=== PATIENT | female | born 1970 | race Two or more races ===

== ENCOUNTER → 2017-11-02 | Outpatient (CLI) | payer BC | LOC: M LRY 14:23 | DX: Z13.9 Encounter for screening, unspecified (principal) ==

== ENCOUNTER → 2017-11-16 | Outpatient (REF) | payer BC, MEDICAID ==
[2017-11-16 14:21] LABS: ERYTHROCYTE SEDIMENTATION RATE 16 mm/hr (0-20)
== END ==
LOC: M LABDRAW1 13:20
DX: M51.34 Other intervertebral disc degeneration, thoracic region (principal)
CPT/HCPCS: 36415

== ENCOUNTER → 2017-12-01 | Outpatient (CLI) | payer BC, MEDICAID | LOC: M RAD 09:32 | DX: K82.4 Cholesterolosis of gallbladder (principal) | CPT/HCPCS: 76705 ==

== ENCOUNTER → 2017-12-06 | Outpatient (REF) | payer BC, MEDICAID ==
[2017-12-06 20:43] LABS: ALBUMIN/GLOBULIN RATIO 1.25 (1.00-1.93); ALKALINE PHOSPHATASE 75 U/L (45-117); ALT/SGPT 28 U/L (12-78); AST/SGOT 20 U/L (7-37); BILIRUBIN,DIRECT < 0.1 MG/DL (0.0-0.2); BILIRUBIN,TOTAL 0.4 MG/DL (0.2-1.0); TOTAL PROTEIN 7.2 GM/DL (6.4-8.2)
== END ==
LOC: M LAB REF 20:12
DX: R93.2 Abnormal findings on diagnostic imaging of liver and biliary tract (principal); K58.9 Irritable bowel syndrome, unspecified

== ENCOUNTER → 2017-12-07 | Outpatient (REF) | payer BC, MEDICAID ==
[2017-12-09 00:06] LABS: H PYLORI STOOL ANTIGEN Positive (Negative)
== END ==
LOC: M SFHCLERA 11:50
DX: K58.9 Irritable bowel syndrome, unspecified (principal)

== ENCOUNTER → 2018-08-02 | Outpatient (REF) | payer BC ==
[2018-08-02 19:26] LABS: CHLAMYDIA DNA AMPLIFICATION NEGATIVE (NEGATIVE); GC DNA AMPLIFICATION NEGATIVE (NEGATIVE)
== END ==
LOC: M SFHCLERA 09:34
DX: Z11.3 Encounter for screening for infections with a predominantly sexual mode of transmission (principal)
CPT/HCPCS: 87591

== ENCOUNTER → 2018-09-03 | Outpatient (CLI) | payer OTHER, BC | LOC: M RAD 15:37 | DX: Z12.31 Encounter for screening mammogram for malignant neoplasm of breast (principal); N60.31 Fibrosclerosis of right breast; N60.32 Fibrosclerosis of left breast | CPT/HCPCS: 77067 ==

== ENCOUNTER → 2018-09-10 | Outpatient (REF) | payer OTHER | LOC: M SFHCLERA 11:11 | DX: R10.9 Unspecified abdominal pain (principal) ==

== ENCOUNTER → 2018-09-13 | Outpatient (REF) | payer OTHER ==
[2018-09-15 00:29] LABS: H PYLORI STOOL ANTIGEN Negative (Negative)
== END ==
LOC: M SFHCLERA 10:06
DX: R10.9 Unspecified abdominal pain (principal)
CPT/HCPCS: 87338

== ENCOUNTER → 2018-09-13 | Outpatient (CLI) | payer OTHER ==
[2018-09-15 00:29] LABS: H. PYLORI BREATH TEST Negative (Negative)
== END ==
LOC: M LAB 11:00
DX: R10.9 Unspecified abdominal pain (principal)
CPT/HCPCS: 36415

== ENCOUNTER → 2018-10-01 | Outpatient (CLI) | payer OTHER | LOC: M RAD 08:39 | DX: R10.9 Unspecified abdominal pain (principal); R10.13 Epigastric pain; Z53.9 Procedure and treatment not carried out, unspecified reason ==

== ENCOUNTER → 2019-03-15 | Outpatient (REF) | payer OTHER ==
[~2019-03-15] MED LIST: CHOL400T PO; HYDR-3363 PO; KETO10TAB PO; MULTCAP PO; NAPR-837 PO; NAPR-885 PO; OMEP40CA2 PO; PROBCAP14 PO; REME15TA PO; ROBA500T PO; ZOFR4TAB14 PO; no home medications
== END ==
LOC: M SFHCLERA 16:04
PROVIDERS: ATTEND Nurse Practitioner Family
DX: R53.81 Other malaise (principal)

== ENCOUNTER → 2019-07-16 | Outpatient (CLI) | payer OTHER ==
[~2019-07-16] MED LIST changes: -OMEP40CA2 PO; +OMEP40CA97 PO
--- NOTE | 2019-07-16 12:58 | REP ---
HIDA SCAN WITH GALLBLADDER EJECTION FRACTION: Following the intravenous administration of 6.6 mCi of technetium-99m mebrofenin, multiple images of the right upper quadrant are performed every 5 minutes for a period of 1 hour. Gallbladder is visualized at 15 minutes post injection. There is biliary to bowel transit at 20 minutes post injection. There is no scintigraphic evidence of cholecystitis. At the 1 hour akiko 8 ounces of Ensure Enlive is ingested and further imaging performed for 1 hour. Gallbladder activity is measured. Gallbladder ejection fraction is calculated to be 40%. IMPRESSION: Gallbladder ejection fraction 40% within normal range. Electronically Signed by Pk Herrera MD 07/17/2019 10:13 A
== END ==
LOC: M RAD 07:43
PROVIDERS: ATTEND Internal Medicine
DX: R10.13 Epigastric pain (principal)
CPT/HCPCS: 78227; A9537; J2805

== ENCOUNTER → 2019-10-29 | Outpatient (CLI) | payer OTHER | LOC: M LAB 08:38 | PROVIDERS: ATTEND Internal Medicine | DX: R73.9 Hyperglycemia, unspecified (principal) ==

== ENCOUNTER → 2020-01-24 | Outpatient (CLI) | payer OTHER ==
--- NOTE | 2020-01-24 09:22 | REP ---
RIGHT QUADRANT SONOGRAPHY: HISTORY: History of gallbladder polyp. Comparison sonography June 29, 2018. SONOGRAPHIC FINDINGS: Scanning through the right upper quadrant of the abdomen demonstrates a normal sized thin-walled gallbladder. In the lumen of the gallbladder, there is a non-shadowing polypoid mass lesion measuring 1.1 x 1.1 x 0.7 cm. Previously, this measured 0.7 cm. In 2017, it was measured sonographically as 0.8 cm. No pericholecystic fluid is seen. No stone is appreciated. No focal liver lesion is seen. Common bile duct is normal measuring 0.3 cm in greatest diameter. Pancreatic tail is obscured by abdominal gas. No pancreatic abnormality is seen. There is a 1.1 cm cyst in the lower pole of the right kidney. The right kidney measures 9.1 x 5.3 x 3.8 cm. No hydronephrosis is seen. There is no evidence of ascites. IMPRESSION: 1.1 cm polypoid lesion on the dependent wall of the gallbladder without shadowing. This appears a little larger than it did on the 2018 and 2016 prior sonograms. Otherwise negative right upper quadrant sonography. Electronically Signed by Suman Dennis MD 01/24/2020 09:23 A
== END ==
LOC: M RAD 07:59
PROVIDERS: ATTEND Internal Medicine
DX: D37.6 Neoplasm of uncertain behavior of liver, gallbladder and bile ducts (principal)

== ENCOUNTER → 2020-06-29 | Outpatient (RCR) | payer OTHER | LOC: M PT 10:05 | PROVIDERS: ATTEND Internal Medicine | DX: M54.5 Low back pain (principal) ==

== ENCOUNTER 2020-07-27 10:15 | Outpatient (RCR) | payer OTHER | END 2020-07-29 | LOC: M PT 10:15 | PROVIDERS: ATTEND Internal Medicine | DX: M54.5 Low back pain (principal) ==

== ENCOUNTER → 2020-08-20 | Outpatient (CLI) | payer OTHER | LOC: M LAB 08:51 | PROVIDERS: ATTEND Physical Medicine & Rehabilitation | DX: M50.221 Other cervical disc displacement at C4-C5 level (principal) ==

== ENCOUNTER → 2020-08-20 | Outpatient (CLI) | payer OTHER ==
--- NOTE | 2020-08-20 08:34 | REP ---
INDICATION: ABD PAIN COMPARISON: 01/24/2020, 12/01/2017 TECHNIQUE: Real time osman scale ultrasound examination using curved array transducer. FINDINGS: Liver is normal in contour, size, and echogenicity without focal hepatic lesions identified. Pancreas is incompletely evaluated due to interposed bowel gas. The gallbladder demonstrates 9 mm and 3 mm echogenic nonshadowing polypoid lesions likely representing gallbladder polyps as previously noted. No gallstones, wall thickening, or pericholecystic fluid. No biliary ductal dilatation is appreciated and the common bile duct measures 5.1 mm diameter. Right kidney is normal in reniform shape without hydronephrosis and measures 9.5 x 4.7 x 3.7 cm. No ascites in the visualized right upper quadrant. IMPRESSION: 1. 1. Relatively stable benign-appearing 9 mm and possibly new 3 mm benign polyps in the gallbladder. 2. Otherwise normal examination. <Electronically signed by Rashawn Hawley > 08/20/20 [id number]
== END ==
LOC: M RAD 07:38
PROVIDERS: ATTEND Internal Medicine Gastroenterology
DX: R10.13 Epigastric pain (principal); K21.9 Gastro-esophageal reflux disease without esophagitis; K29.01 Acute gastritis with bleeding; E53.8 Deficiency of other specified B group vitamins; K82.4 Cholesterolosis of gallbladder

== ENCOUNTER 2020-10-22 08:45 | Outpatient (RCR) | payer OTHER | END 2020-10-29 | LOC: M PT 08:45 | PROVIDERS: ATTEND Internal Medicine | DX: M54.2 Cervicalgia (principal); R20.2 Paresthesia of skin ==

== ENCOUNTER → 2020-11-05 | Outpatient (CLI) | payer OTHER ==
[2020-11-05 09:46] LABS: BILIRUBIN,DIRECT 0.1 MG/DL (0.0-0.2); BILIRUBIN,TOTAL 0.4 MG/DL (0.2-1.0); TOTAL PROTEIN 7.4 GM/DL (6.4-8.2)
== END ==
LOC: M LAB 07:22
PROVIDERS: ATTEND Internal Medicine Gastroenterology
DX: R10.13 Epigastric pain (principal); R10.11 Right upper quadrant pain; R19.5 Other fecal abnormalities; K44.9 Diaphragmatic hernia without obstruction or gangrene; K29.01 Acute gastritis with bleeding

== ENCOUNTER → 2020-11-20 | Outpatient (CLI) | payer OTHER ==
[~2020-11-20] MED LIST changes: +PROHANCE 279.3MG/ML 15ML VIAL As Ordered ONE
--- NOTE | 2020-11-20 10:47 | REP ---
INDICATION: ABD PAIN MRCP. COMPARISON: CT chest 03/15/[address] abdomen 09/04/2014. TECHNIQUE: Multiple heavily T2 weighted sequences are obtained in the axial and coronal planes. 3D MIP reconstruction images are performed. Multiple sequences obtained pre and post IV contrast administration, with 15 mL ProHance administered. FINDINGS: There is no intrahepatic or extrahepatic biliary dilatation. The common bile duct has a maximum diameter of approximately 5 mm. In the region of the superior aspect of the pancreatic head there is segmental narrowing of the common bile duct extending for a length of about 1 cm. The more distal aspect of the common bile duct has a maximum diameter of 5 mm and appears to taper normally to the ampulla of Vater. The pancreatic duct is normal in caliber. There is no intrahepatic biliary dilatation. Approximately 3 small nodules along the inner wall the gallbladder represent polyps, the largest measures 7 mm. There is a subcentimeter cyst in the left lobe of the liver with no other evidence of suspicious liver nodule. The spleen is normal in size with no intrinsic abnormality. The adrenal glands are normal. Few subcentimeter cysts are seen in the left kidney. The kidneys otherwise appear unremarkable. The pancreas demonstrates no MR evidence of cystic or solid mass. There is no area of abnormal enhancement. There is no MR evidence of a mass at the level of the common bile duct narrowing. There is no adenopathy or free fluid in the abdomen. The visualized left colon demonstrates evidence of diverticulosis. IMPRESSION: In the region of the superior pancreatic head there is focal narrowing and possible stricture of the common bile duct 1 cm in length. There is no proximal biliary dilatation, the maximum diameter of the more proximal common bile duct is 5 mm. No mass is visible in the pancreas. Consider conventional ERCP to further evaluate. Endoscopic ultrasound may be useful to evaluate for subtle pathology in this region. Gallbladder polyps are noted, the largest measures 7 mm. Recommend follow-up ultrasound of the gallbladder in 1 year. <Electronically signed by Pk Herrera > 11/20/20 [id number]
== END ==
LOC: M RAD 08:20
PROVIDERS: ATTEND Internal Medicine Gastroenterology
DX: R10.11 Right upper quadrant pain (principal); R10.13 Epigastric pain; R19.5 Other fecal abnormalities; K44.9 Diaphragmatic hernia without obstruction or gangrene; K29.01 Acute gastritis with bleeding; K76.89 Other specified diseases of liver; K82.4 Cholesterolosis of gallbladder
CPT/HCPCS: 74183; A9576

== ENCOUNTER 2020-11-25 08:46 | Outpatient (RCR) | payer OTHER ==
[~2020-11-25 08:46] MED LIST changes: -PROHANCE 279.3MG/ML 15ML VIAL As Ordered ONE
== END 2020-11-29 ==
LOC: M PT 08:46
PROVIDERS: ATTEND Internal Medicine
DX: M47.892 Other spondylosis, cervical region (principal); M50.322 Other cervical disc degeneration at C5-C6 level; M47.894 Other spondylosis, thoracic region; R20.2 Paresthesia of skin

== ENCOUNTER 2020-12-24 08:30 | Outpatient (RCR) | payer OTHER | END 2020-12-27 | LOC: M PT 08:30 | PROVIDERS: ATTEND Internal Medicine | DX: M47.892 Other spondylosis, cervical region (principal); M50.322 Other cervical disc degeneration at C5-C6 level; M47.894 Other spondylosis, thoracic region ==

== ENCOUNTER → 2021-02-01 | Outpatient (CLI) | payer OTHER ==
[2021-02-01 18:42] LABS: HEMATOCRIT 38.5 % (36.0-47.0); HEMOGLOBIN 12.3 g/dl (12.0-15.5); MEAN CORPUSCULAR HEMOGLOBIN 28.5 pg (27.0-33.0); MEAN CORPUSCULAR HGB CONC 31.9 g/dl (32.0-36.5); MEAN CORPUSCULAR VOLUME 89.1 fl (80.0-96.0); PLATELET COUNT, AUTOMATED 279 10^3/uL (150-450); RED BLOOD COUNT 4.32 10^6/uL (4.00-5.40); WHITE BLOOD COUNT 7.7 10^3/uL (4.0-10.0)
[2021-02-01 19:15] LABS: ALBUMIN 4.4 GM/DL (3.2-5.2); ALT/SGPT 139 U/L (12-78); BLOOD UREA NITROGEN 12 MG/DL (7-18); CARBON DIOXIDE LEVEL 30 MEQ/L (21-32); CHLORIDE LEVEL 103 MEQ/L (98-107); CREATININE FOR GFR 0.59 MG/DL (0.55-1.30); GLOMERULAR FILTRATION RATE > 60.0 (>51); GLUCOSE, FASTING 154 MG/DL (70-100); LIPASE 3717 U/L (73-393); POTASSIUM SERUM 4.2 MEQ/L (3.5-5.1); SODIUM LEVEL 138 MEQ/L (136-145); TOTAL PROTEIN 8.2 GM/DL (6.4-8.2)
== END ==
LOC: M LAB 17:13
PROVIDERS: ATTEND Internal Medicine Gastroenterology
DX: R10.11 Right upper quadrant pain (principal)

== ENCOUNTER 2021-02-12 07:13 | Emergency (ER) | payer OTHER ==
[~2021-02-12] VITALS: Ht 154.9 cm; Wt 71.1 kg
[2021-02-12] MEDS ORDERED: MORPHINE 2 MG/ML 1ML VIAL (J2270) IV PRN (07:45)
[2021-02-12 08:26] LABS: BASO % 0.6 % (0.0-1.0); EOS # 0.1 10^3/uL (0.0-0.5); EOS % 1.1 % (0.0-3.0); HEMATOCRIT 39.1 % (36.0-47.0); HEMOGLOBIN 12.5 g/dl (12.0-15.5); LYMPH # 1.3 10^3/uL (1.5-5.0); LYMPH % 27.1 % (24.0-44.0); MEAN CORPUSCULAR HEMOGLOBIN 28.8 pg (27.0-33.0); MEAN CORPUSCULAR VOLUME 90.1 fl (80.0-96.0); MONO # 0.2 10^3/uL (0.0-0.8); MONO % 5.1 % (2.0-8.0); NEUTROPHILS # 3.1 10^3/uL (1.5-8.5); NEUTROPHILS % 65.7 % (36.0-66.0); PLATELET COUNT, AUTOMATED 241 10^3/uL (150-450); RED BLOOD COUNT 4.34 10^6/uL (4.00-5.40); WHITE BLOOD COUNT 4.7 10^3/uL (4.0-10.0)
[2021-02-12 08:39] LABS: INR 0.97; PARTIAL THROMBOPLASTIN TIME 27.7 SECONDS (24.2-38.5); PROTHROMBIN TIME 13.1 SECONDS (12.5-14.3)
[2021-02-12 08:51] LABS: ALBUMIN 3.8 GM/DL (3.2-5.2); ALT/SGPT 29 U/L (12-78); AMYLASE 49 U/L (25-115); BILIRUBIN,DIRECT < 0.1 MG/DL (0.0-0.2); BILIRUBIN,TOTAL 0.4 MG/DL (0.2-1.0); BLOOD UREA NITROGEN 6 MG/DL (7-18); CALCIUM LEVEL 9.2 MG/DL (8.5-10.1); CARBON DIOXIDE LEVEL 29 MEQ/L (21-32); CHLORIDE LEVEL 108 MEQ/L (98-107); CK-MB VALUE MASS < 1.0 NG/ML (<3.6); CPK CREATINE PHOSPHOKINASE 79 U/L (26-192); GLOMERULAR FILTRATION RATE > 60.0 (>51); GLUCOSE, FASTING 100 MG/DL (70-100); LIPASE 70 U/L (73-393); MB/CK RELATIVE INDEX 1.27 (< OR =4); POTASSIUM SERUM 3.8 MEQ/L (3.5-5.1); SODIUM LEVEL 141 MEQ/L (136-145); TOTAL PROTEIN 7.7 GM/DL (6.4-8.2); TROPONIN I < 0.02 NG/ML (< 0.10)
[2021-02-12] MEDS ORDERED: ISOVUE-370 76% 100ML VIAL As Ordered ONE (08:54)
--- NOTE | 2021-02-12 10:34 | REP ---
INDICATION: abdominal pain, possible pancreatitis. COMPARISON: Although the patient has indicated to the technologist performing the examination that prior examinations were obtained both here and at [facility] there are no prior CT examinations for comparison. TECHNIQUE: Standard helical technique after the intravenous administration of 100 cc Isovue 370. No oral bowel preparatory contrast was administered prior to the exam. FINDINGS: The lung bases are clear The liver, gallbladder, spleen, pancreas, adrenal glands, and kidneys are within normal limits. The abdominal aorta and para-regions are within normal limits. Scattered colonic diverticula are noted. The bowel loops and the mesenteries are otherwise unremarkable. There is no free fluid or free air. Arising from the right lateral superior margin of the uterus there is a round soft tissue density which measures approximately 2.9 cm and likely representing uterine myomatous change. There is no adenopathy. The imaged osseous structures are within normal limits. IMPRESSION: There is no evidence of acute disease. Other findings as described above. <Electronically signed by Lamin Valencia > 02/12/21 [id number]
[2021-02-12] MEDS ORDERED: PEPT262T2 PO (11:48)
[2021-02-12] MEDS ORDERED: vitamin d (11:48)
[2021-02-12] MEDS ORDERED: SUCR1TAB56 (11:48)
[2021-02-12 13:22] VITALS: BP 121/80
--- NOTE | 2021-02-12 19:51 | ECGEPIP ---
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
== END 2021-02-12 13:26 | disposition home or self-care (01) ==
LOC: M ED 07:13 → MERGE 07:13 → M ED 13:26
DX: K90.49 Malabsorption due to intolerance, not elsewhere classified (principal); Z79.899 Other long term (current) drug therapy
CPT/HCPCS: 74177; 80048; 80076; 82150; 82550; 82553; 83605; 83690; 85025; 85610; 85730; 93005; 93041; 96374; 99285; J2270; Q9967

== ENCOUNTER → 2021-02-23 | Outpatient (CLI) | payer OTHER ==
[~2021-02-23] MED LIST changes: +PEPT262T2 PO; +SUCR1TAB56; +vitamin d
[2021-02-23 10:33] LABS: ALBUMIN 3.8 GM/DL (3.2-5.2); BILIRUBIN,DIRECT 0.1 MG/DL (0.0-0.2); BILIRUBIN,TOTAL 0.6 MG/DL (0.2-1.0); TOTAL PROTEIN 7.4 GM/DL (6.4-8.2)
== END ==
LOC: M LAB 09:25
PROVIDERS: ATTEND Internal Medicine Gastroenterology
DX: R10.13 Epigastric pain (principal); K21.9 Gastro-esophageal reflux disease without esophagitis; K29.01 Acute gastritis with bleeding; R14.1 Gas pain; K31.5 Obstruction of duodenum; K82.4 Cholesterolosis of gallbladder

== ENCOUNTER → 2021-04-20 | Outpatient (CLI) | payer OTHER ==
[~2021-04-20] MED LIST changes: +OMEP40CA4 PO; -OMEP40CA97 PO
[2021-04-20 12:28] LABS: CHOLESTEROL RISK RATIO 3.384 (<5)
== END ==
LOC: M LAB 11:06
PROVIDERS: ATTEND Internal Medicine Cardiovascular Disease
DX: R73.03 Prediabetes (principal)

== ENCOUNTER → 2021-04-22 | Outpatient (CLI) | payer OTHER ==
--- NOTE | 2021-04-22 11:18 | REP ---
INDICATION: LLQ PAIN. COMPARISON: 01/28/2013. TECHNIQUE: Transabdominal and transvaginal scanning performed. FINDINGS: Uterine dimensions are 5.9 x 2.2 x 3.8 cm. Endometrial echo is 2 mm in AP dimension and centrally placed. There is a right fundal fibroid measuring 2.4 cm in diameter. The bladder measures 7.7 x 4.2 x 7.3cm. The right ovary has been removed. The left ovary dimensions are 1.8 x 0.9 x 0.8 cm. It's Doppler flow was normal with resistive index of 0.69. There is no adnexal mass identified. No free fluid is seen in the cul-de-sac. Evaluation of the left inguinal region demonstrates no evidence of a hernia. IMPRESSION: Fundal fibroid 2.4 cm in maximum diameter. No adnexal mass or free fluid. No evidence of left inguinal hernia. <Electronically signed by Pk Herrera > 04/22/21 [id number]
== END ==
LOC: M RAD 09:14
PROVIDERS: ATTEND Internal Medicine
DX: R10.32 Left lower quadrant pain (principal)

== ENCOUNTER 2021-12-15 02:11 | Emergency (ER) | payer OTHER ==
[~2021-12-15] VITALS: Ht 154.9 cm; Wt 69.4 kg
[2021-12-15 02:58] LABS: BASO % 0.4 % (0.0-1.0); EOS # 0.1 10^3/uL (0.0-0.5); EOS % 1.6 % (0.0-3.0); HEMATOCRIT 38.1 % (36.0-47.0); HEMOGLOBIN 12.4 g/dl (12.0-15.5); LYMPH # 2.5 10^3/uL (1.5-5.0); LYMPH % 32.4 % (24.0-44.0); MEAN CORPUSCULAR HEMOGLOBIN 28.6 pg (27.0-33.0); MEAN CORPUSCULAR HGB CONC 32.5 g/dl (32.0-36.5); MONO # 0.5 10^3/uL (0.0-0.8); MONO % 6.2 % (2.0-8.0); NEUTROPHILS # 4.5 10^3/uL (1.5-8.5); NEUTROPHILS % 59.3 % (36.0-66.0); PLATELET COUNT, AUTOMATED 288 10^3/uL (150-450); RED BLOOD COUNT 4.33 10^6/uL (4.00-5.40); WHITE BLOOD COUNT 7.6 10^3/uL (4.0-10.0)
[2021-12-15 03:27] LABS: ALT/SGPT 33 U/L (12-78); BILIRUBIN,DIRECT < 0.1 MG/DL (0.0-0.2); BILIRUBIN,TOTAL 0.3 MG/DL (0.2-1.0); BLOOD UREA NITROGEN 13 MG/DL (7-18); CARBON DIOXIDE LEVEL 29 MEQ/L (21-32); CHLORIDE LEVEL 106 MEQ/L (98-107); CREATININE FOR GFR 0.66 MG/DL (0.55-1.30); GLOMERULAR FILTRATION RATE > 60.0 (>51); GLUCOSE, FASTING 105 MG/DL (70-100); LIPASE 131 U/L (73-393); POTASSIUM SERUM 3.9 MEQ/L (3.5-5.1); SODIUM LEVEL 142 MEQ/L (136-145); TOTAL PROTEIN 7.8 GM/DL (6.4-8.2)
[2021-12-15] MEDS ORDERED: GI COCKTAIL 50ML BTL(HYOSCYAMINE/MAALOX/LIDOCAINE VISCOUS)(1:3:1) PO ONE (04:25)
[2021-12-15] MEDS ORDERED: ISOVUE-370 76% 100ML VIAL As Ordered ONE (04:32)
[2021-12-15] MEDS ORDERED: ACETAMINOPHEN TAB 650MG DOSE (2X325MG) PO ONE (06:15)
[2021-12-15] MEDS ORDERED: OMEP40CA4 PO (06:16)
[2021-12-15] MEDS ORDERED: SUCR1TA PO (06:16)
[2021-12-15 06:30] VITALS: BP 158/77
== END 2021-12-15 06:55 | disposition home or self-care (01) ==
LOC: M ED 02:11
DX: R10.13 Epigastric pain (principal); R00.2 Palpitations
CPT/HCPCS: 36415; 74177; 80048; 80076; 83690; 85025; 93005; 99284; Q9967

== ENCOUNTER → 2021-12-17 | Outpatient (CLI) | payer OTHER ==
[~2021-12-17] MED LIST changes: +SUCR1TA PO
== END ==
LOC: M RAD 10:18
PROVIDERS: ATTEND Internal Medicine
DX: K82.4 Cholesterolosis of gallbladder (principal)

== ENCOUNTER → 2022-02-09 | Outpatient (CLI) | payer OTHER | LOC: M WHC 15:03 | PROVIDERS: ATTEND Internal Medicine | DX: Z12.31 Encounter for screening mammogram for malignant neoplasm of breast (principal) ==

== ENCOUNTER → 2022-03-17 | Outpatient (CLI) | payer OTHER ==
[2022-03-17 14:04] LABS: BASO % 0.7 % (0.0-1.0); EOS # 0.1 10^3/uL (0.0-0.5); EOS % 0.8 % (0.0-3.0); HEMATOCRIT 37.7 % (36.0-47.0); HEMOGLOBIN 12.2 g/dl (12.0-15.5); LYMPH # 1.7 10^3/uL (1.5-5.0); LYMPH % 28.2 % (24.0-44.0); MEAN CORPUSCULAR HGB CONC 32.4 g/dl (32.0-36.5); MEAN CORPUSCULAR VOLUME 89.8 fl (80.0-96.0); MONO # 0.3 10^3/uL (0.0-0.8); MONO % 5.4 % (2.0-8.0); NEUTROPHILS % 64.7 % (36.0-66.0); PLATELET COUNT, AUTOMATED 264 10^3/uL (150-450); WHITE BLOOD COUNT 6.1 10^3/uL (4.0-10.0)
[2022-03-17 14:26] LABS: ALT/SGPT 23 U/L (12-78); BILIRUBIN,TOTAL 0.6 MG/DL (0.2-1.0); BLOOD UREA NITROGEN 11 MG/DL (7-18); CALCIUM LEVEL 9.6 MG/DL (8.5-10.1); CARBON DIOXIDE LEVEL 28 MEQ/L (21-32); CHLORIDE LEVEL 108 MEQ/L (98-107); CHOLESTEROL LEVEL 244 MG/DL (<200); CHOLESTEROL RISK RATIO 3.012 (<5); GLOMERULAR FILTRATION RATE > 60.0 (>51); GLUCOSE, FASTING 93 MG/DL (70-100); HDL CHOLESTEROL 81 MG/DL (>40); IRON (FE) 82 UG/DL (50-170); LDL CHOLESTEROL 149 MG/DL (<100); NON-HDL-C 163 MG/DL; PERCENT SATURATION 23.6 % (13.2-45.0); SODIUM LEVEL 142 MEQ/L (136-145); TOTAL IRON BINDING CAPACITY 347 UG/DL (250-450); TOTAL PROTEIN 7.6 GM/DL (6.4-8.2); TRIGLYCERIDES LEVEL 71 MG/DL (<150)
[2022-03-17 14:31] LABS: CREATININE, URINE 92.5 MG/DL; MALB URINE SIEMENS 16.2 MG/L; MAU/CREAT RATIO 17.5 MCG/MG (0.0-30.0); TOTAL 25(OH) VITAMIN D 28.6 NG/ML (30.0-100.0); VITAMIN B12 LEVEL > 2000 PG/ML (247-911)
[2022-03-17 15:09] LABS: HEMOGLOBIN A1c 5.5 %
== END ==
LOC: M LAB 13:00
PROVIDERS: ATTEND Physician Assistant
DX: I10 Essential (primary) hypertension (principal); E55.9 Vitamin D deficiency, unspecified; Z13.1 Encounter for screening for diabetes mellitus; Z86.2 Personal history of diseases of the blood and blood-forming organs and certain disorders involving the immune mechanism

== ENCOUNTER → 2022-05-12 | Outpatient (CLI) | payer OTHER ==
[2022-05-12 17:57] LABS: C REACTIVE PROTEIN QUANTITATIV < 0.30 MG/DL (0.00-0.30); RHEUMATOID FACTOR QUANT < 10.0 IU/ML (<15.0); URIC ACID 4.7 MG/DL (2.6-6.0)
== END ==
LOC: M LAB 16:30
PROVIDERS: ATTEND Physician Assistant
DX: M25.50 Pain in unspecified joint (principal)

== ENCOUNTER → 2022-08-10 | Outpatient (CLI) | payer OTHER | LOC: M ADAMS 10:42 | PROVIDERS: ATTEND Physician Assistant | DX: R22.32 Localized swelling, mass and lump, left upper limb (principal); M16.12 Unilateral primary osteoarthritis, left hip ==

== ENCOUNTER → 2022-08-15 | Outpatient (CLI) | payer OTHER | LOC: M WHC 08:05 | PROVIDERS: ATTEND Physician Assistant | DX: Z13.820 Encounter for screening for osteoporosis (principal); M85.851 Other specified disorders of bone density and structure, right thigh; M85.852 Other specified disorders of bone density and structure, left thigh ==

== ENCOUNTER → 2022-09-12 | Outpatient (CLI) | payer OTHER | LOC: M PAIN 08:00 | PROVIDERS: ATTEND Nurse Practitioner Family | DX: M25.552 Pain in left hip (principal); M46.1 Sacroiliitis, not elsewhere classified; E55.9 Vitamin D deficiency, unspecified; Z86.59 Personal history of other mental and behavioral disorders; Z79.899 Other long term (current) drug therapy ==

== ENCOUNTER → 2022-12-01 | Outpatient (CLI) | payer OTHER | LOC: M PLAIMG 10:53 | PROVIDERS: ATTEND Nurse Practitioner Family | DX: M94.252 Chondromalacia, left hip (principal); M70.61 Trochanteric bursitis, right hip; M70.62 Trochanteric bursitis, left hip ==

== ENCOUNTER → 2022-12-28 | Outpatient (CLI) | payer OTHER | LOC: M PAIN 09:30 | PROVIDERS: ATTEND Anesthesiology | DX: M25.552 Pain in left hip (principal); M94.20 Chondromalacia, unspecified site; M70.62 Trochanteric bursitis, left hip; K29.50 Unspecified chronic gastritis without bleeding; E55.9 Vitamin D deficiency, unspecified; D64.9 Anemia, unspecified; E78.5 Hyperlipidemia, unspecified; R42 Dizziness and giddiness; R41.1 Anterograde amnesia; M54.6 Pain in thoracic spine; Z79.899 Other long term (current) drug therapy ==

== ENCOUNTER → 2023-01-11 | Outpatient (REF) | payer OTHER | LOC: M SFHCADAM 11:15 | PROVIDERS: ATTEND Physician Assistant | DX: Z53.9 Procedure and treatment not carried out, unspecified reason (principal) ==

== ENCOUNTER → 2023-01-16 | Outpatient (CLI) | payer OTHER ==
[2023-01-16 13:15] LABS: BASO % 0.6 % (0.0-1.0); EOS # 0.1 10^3/uL (0.0-0.5); EOS % 1.4 % (0.0-3.0); HEMATOCRIT 38.6 % (36.0-47.0); HEMOGLOBIN 12.1 g/dl (12.0-15.5); LYMPH # 1.6 10^3/uL (1.5-5.0); LYMPH % 33.1 % (24.0-44.0); MEAN CORPUSCULAR HEMOGLOBIN 29.2 pg (27.0-33.0); MEAN CORPUSCULAR HGB CONC 31.3 g/dl (32.0-36.5); MONO # 0.3 10^3/uL (0.0-0.8); MONO % 6.8 % (2.0-8.0); NEUTROPHILS # 2.8 10^3/uL (1.5-8.5); NEUTROPHILS % 57.9 % (36.0-66.0); PLATELET COUNT, AUTOMATED 259 10^3/uL (150-450); RED BLOOD COUNT 4.15 10^6/uL (4.00-5.40); WHITE BLOOD COUNT 4.9 10^3/uL (4.0-10.0)
[2023-01-16 13:38] LABS: HEMOGLOBIN A1c 5.5 % (4.0-6.0)
[2023-01-16 13:52] LABS: ALKALINE PHOSPHATASE 73 U/L (46-116); ALT/SGPT 27 U/L (7.0-40); AST/SGOT 22 U/L (<34); BILIRUBIN,TOTAL 0.8 MG/DL (0.3-1.2); BLOOD UREA NITROGEN 12 MG/DL (9-23); CALCIUM LEVEL 8.3 MG/DL (8.5-10.1); CARBON DIOXIDE LEVEL 30 MMOL/L (20-31); CHLORIDE LEVEL 106 MMOL/L (98-107); CHOLESTEROL LEVEL 224 MG/DL (<200); CHOLESTEROL RISK RATIO 3.26 (<5); CREATININE FOR GFR 0.63 MG/DL (0.55-1.30); GLOMERULAR FILTRATION RATE > 60.0 (>51); GLUCOSE, FASTING 88 MG/DL (60-100); HDL CHOLESTEROL 68.6 MG/DL (>40); LDL CHOLESTEROL 134.4 MG/DL (<100); NON-HDL-C 155.4 MG/DL; POTASSIUM SERUM 4.8 MMOL/L (3.5-5.1); SODIUM LEVEL 137 MMOL/L (136-145); TOTAL 25(OH) VITAMIN D 33.5 NG/ML (20.0-100.0); TOTAL PROTEIN 6.9 G/DL (5.7-8.2); TRIGLYCERIDES LEVEL 105 MG/DL (<150)
== END ==
LOC: M WUC 10:29
PROVIDERS: ATTEND Physician Assistant
DX: I10 Essential (primary) hypertension (principal); E78.5 Hyperlipidemia, unspecified; E55.9 Vitamin D deficiency, unspecified; R19.7 Diarrhea, unspecified

== ENCOUNTER → 2023-03-07 | Outpatient (CLI) | payer OTHER | LOC: M RAD 07:25 | PROVIDERS: ATTEND Nurse Practitioner Family | DX: R10.11 Right upper quadrant pain (principal); K21.9 Gastro-esophageal reflux disease without esophagitis; K82.4 Cholesterolosis of gallbladder; K31.5 Obstruction of duodenum ==

== ENCOUNTER → 2023-03-13 | Outpatient (REF) | payer OTHER ==
[2023-03-23 17:10] LABS: CALPROTECTIN STOOL <5 ug/g (0-120); FATS NEUTRAL Increased (.); FATS TOTAL Increased (.); PANCREATIC ELASTASE STOOL 156 (>200)
== END ==
LOC: M LAB REF 10:24
PROVIDERS: ATTEND Nurse Practitioner Family
DX: K82.4 Cholesterolosis of gallbladder (principal); K31.5 Obstruction of duodenum; R19.7 Diarrhea, unspecified; K21.9 Gastro-esophageal reflux disease without esophagitis

== ENCOUNTER → 2023-03-29 | Outpatient (REF) | payer OTHER | LOC: M PLALAB 14:14 | PROVIDERS: ATTEND Advanced Practice Midwife | DX: Z12.4 Encounter for screening for malignant neoplasm of cervix (principal) ==

== ENCOUNTER → 2023-03-29 | Outpatient (CLI) | payer OTHER | LOC: MERGE 13:20 → M WHC 13:20 | PROVIDERS: ATTEND Advanced Practice Midwife | DX: Z12.31 Encounter for screening mammogram for malignant neoplasm of breast (principal) ==

== ENCOUNTER → 2023-10-20 | Outpatient (REF) | payer OTHER ==
[2023-10-20 17:30] LABS: FOLATE 17.7 NG/ML (>5.4)
[2023-10-20 17:31] LABS: BLOOD UREA NITROGEN 17 MG/DL (9-23); CALCIUM LEVEL 9.7 MG/DL (8.5-10.1); CARBON DIOXIDE LEVEL 27 MMOL/L (20-31); CHLORIDE LEVEL 107 MMOL/L (98-107); CREATININE FOR GFR 0.66 MG/DL (0.55-1.30); GLOMERULAR FILTRATION RATE > 60.0 (>51); GLUCOSE, FASTING 96 MG/DL (60-100); MAGNESIUM LEVEL 2.2 MG/DL (1.8-2.4); POTASSIUM SERUM 4.1 MMOL/L (3.5-5.1); SODIUM LEVEL 143 MMOL/L (136-145); THYROID STIMULATING HORMONE 1.211 uIU/ML (0.55-4.78); TOTAL 25(OH) VITAMIN D 29.3 NG/ML (20.0-100.0)
[2023-10-20 17:33] LABS: FREE T4 1.03 NG/DL (0.89-1.76)
[2023-10-20 17:34] LABS: VITAMIN B12 LEVEL 597 PG/ML (211-911)
[2023-10-20 17:36] LABS: PTH INTACT 56.5 PG/ML (18.5-88.0)
[2023-10-20 18:02] LABS: BASO % 0.6 % (0.0-1.0); EOS # 0.1 10^3/uL (0.0-0.5); EOS % 1.3 % (0.0-3.0); HEMATOCRIT 37.5 % (36.0-47.0); HEMOGLOBIN 11.8 g/dl (12.0-15.5); LYMPH % 32.6 % (24.0-44.0); MEAN CORPUSCULAR HGB CONC 31.5 g/dl (32.0-36.5); MEAN CORPUSCULAR VOLUME 92.1 fl (80.0-96.0); MONO # 0.4 10^3/uL (0.0-0.8); MONO % 6.7 % (2.0-8.0); NEUTROPHILS # 3.6 10^3/uL (1.5-8.5); NEUTROPHILS % 58.6 % (36.0-66.0); PLATELET COUNT, AUTOMATED 278 10^3/uL (150-450); RED BLOOD COUNT 4.07 10^6/uL (4.00-5.40); WHITE BLOOD COUNT 6.2 10^3/uL (4.0-10.0)
== END ==
LOC: M SFHCADAM 14:13
PROVIDERS: ATTEND Physician Assistant
DX: E55.9 Vitamin D deficiency, unspecified (principal); F43.22 Adjustment disorder with anxiety; R41.3 Other amnesia; R00.2 Palpitations; R03.0 Elevated blood-pressure reading, without diagnosis of hypertension; Z13.21 Encounter for screening for nutritional disorder

== ENCOUNTER → 2023-12-29 | Outpatient (REF) | payer OTHER | LOC: M LAB REF 14:37 | PROVIDERS: ATTEND Internal Medicine Gastroenterology | DX: R19.7 Diarrhea, unspecified (principal); K86.89 Other specified diseases of pancreas; K90.3 Pancreatic steatorrhea; K21.9 Gastro-esophageal reflux disease without esophagitis; Z12.11 Encounter for screening for malignant neoplasm of colon; K82.4 Cholesterolosis of gallbladder; A04.0 Enteropathogenic Escherichia coli infection ==

== ENCOUNTER → 2024-01-10 | Outpatient (CLI) | payer OTHER | LOC: M RAD 10:01 | PROVIDERS: ATTEND Internal Medicine Gastroenterology | DX: K82.4 Cholesterolosis of gallbladder (principal); R19.7 Diarrhea, unspecified; K86.89 Other specified diseases of pancreas; K90.3 Pancreatic steatorrhea; K21.9 Gastro-esophageal reflux disease without esophagitis; Z12.11 Encounter for screening for malignant neoplasm of colon ==

== ENCOUNTER → 2024-02-09 | Outpatient (REF) | payer OTHER ==
[2024-02-09 13:10] LABS: BASO % 0.6 % (0.0-1.0); EOS # 0.1 10^3/uL (0.0-0.5); EOS % 1.5 % (0.0-3.0); HEMATOCRIT 37.2 % (36.0-47.0); LYMPH # 1.8 10^3/uL (1.5-5.0); LYMPH % 33.5 % (24.0-44.0); MEAN CORPUSCULAR HGB CONC 32.3 g/dl (32.0-36.5); MEAN CORPUSCULAR VOLUME 89.9 fl (80.0-96.0); MONO # 0.4 10^3/uL (0.0-0.8); MONO % 8.1 % (2.0-8.0); NEUTROPHILS # 3.1 10^3/uL (1.5-8.5); NEUTROPHILS % 56.1 % (36.0-66.0); PLATELET COUNT, AUTOMATED 258 10^3/uL (150-450); RED BLOOD COUNT 4.14 10^6/uL (4.00-5.40); WHITE BLOOD COUNT 5.4 10^3/uL (4.0-10.0)
[2024-02-09 13:15] LABS: FREE T4 1.11 NG/DL (0.89-1.76); THYROID STIMULATING HORMONE 2.567 uIU/ML (0.55-4.78)
[2024-02-09 13:18] LABS: TOTAL 25(OH) VITAMIN D 31.9 NG/ML (20.0-100.0)
[2024-02-09 13:20] LABS: ALBUMIN 4.1 G/DL (3.2-5.2); ALKALINE PHOSPHATASE 74 U/L (46-116); ALT/SGPT 29 U/L (7.0-40); AST/SGOT 19 U/L (<34); BILIRUBIN,TOTAL 0.8 MG/DL (0.3-1.2); BLOOD UREA NITROGEN 14 MG/DL (9-23); CALCIUM LEVEL 9.5 MG/DL (8.5-10.1); CARBON DIOXIDE LEVEL 29 MMOL/L (20-31); CHLORIDE LEVEL 107 MMOL/L (98-107); CHOLESTEROL LEVEL 222 MG/DL (<200); CHOLESTEROL RISK RATIO 3.27 (<5); CREATININE FOR GFR 0.61 MG/DL (0.55-1.30); GLOMERULAR FILTRATION RATE > 60.0 (>51); GLUCOSE, FASTING 94 MG/DL (60-100); HDL CHOLESTEROL 67.8 MG/DL (>40); NON-HDL-C 154.2 MG/DL; POTASSIUM SERUM 4.6 MMOL/L (3.5-5.1); SODIUM LEVEL 143 MMOL/L (136-145); TOTAL PROTEIN 7.2 G/DL (5.7-8.2); TRIGLYCERIDES LEVEL 101 MG/DL (<150)
[2024-02-09 13:21] LABS: HEMOGLOBIN A1c 5.4 % (4.0-6.0)
== END ==
LOC: M SFHCADAM 09:04
PROVIDERS: ATTEND Physician Assistant
DX: E78.5 Hyperlipidemia, unspecified (principal); E55.9 Vitamin D deficiency, unspecified; K29.50 Unspecified chronic gastritis without bleeding; I10 Essential (primary) hypertension

== ENCOUNTER → 2024-03-06 | Outpatient (CLI) | payer OTHER | LOC: M ADAMS 13:56 | PROVIDERS: ATTEND Physician Assistant | DX: M16.0 Bilateral primary osteoarthritis of hip (principal) ==

== ENCOUNTER → 2024-05-01 | Outpatient (REF) | payer OTHER | LOC: M LAB REF 11:13 | PROVIDERS: ATTEND Nurse Practitioner Family | DX: K82.4 Cholesterolosis of gallbladder (principal); A04.8 Other specified bacterial intestinal infections; R19.7 Diarrhea, unspecified; K31.5 Obstruction of duodenum ==

== ENCOUNTER → 2024-05-22 | Outpatient (CLI) | payer OTHER | LOC: M RAD 12:25 | PROVIDERS: ATTEND Physician Assistant | DX: M25.551 Pain in right hip (principal); M25.552 Pain in left hip ==

== ENCOUNTER → 2024-05-29 | Outpatient (CLI) | payer OTHER | LOC: M WHC 15:09 | PROVIDERS: ATTEND Advanced Practice Midwife | DX: Z12.31 Encounter for screening mammogram for malignant neoplasm of breast (principal) ==

== ENCOUNTER → 2024-05-29 | Outpatient (REF) | payer OTHER ==
[~2024-05-29] MED LIST changes: +PANT40TA29 PO; +SUCR1ORA PO
[2024-06-01 16:07] LABS: HPV APTIMA Not Detected (Not Detected)
== END ==
LOC: M PLALAB 15:50
PROVIDERS: ATTEND Advanced Practice Midwife
DX: Z12.4 Encounter for screening for malignant neoplasm of cervix (principal)

== ENCOUNTER 2024-06-11 12:54 | Emergency (ER) | payer OTHER ==
[~2024-06-11] VITALS: Ht 154.9 cm; Wt 73.9 kg
[~2024-06-11 12:54] MED LIST changes: -PANT40TA29 PO; -SUCR1ORA PO
[2024-06-11 14:26] LABS: BASO % 0.4 % (0.0-1.0); EOS # 0.1 10^3/uL (0.0-0.5); EOS % 1.1 % (0.0-3.0); HEMATOCRIT 36.9 % (36.0-47.0); LYMPH # 1.6 10^3/uL (1.5-5.0); LYMPH % 28.9 % (24.0-44.0); MEAN CORPUSCULAR HEMOGLOBIN 29.2 pg (27.0-33.0); MEAN CORPUSCULAR HGB CONC 32.5 g/dl (32.0-36.5); MEAN CORPUSCULAR VOLUME 89.8 fl (80.0-96.0); MONO # 0.4 10^3/uL (0.0-0.8); MONO % 6.3 % (2.0-8.0); NEUTROPHILS # 3.5 10^3/uL (1.5-8.5); NEUTROPHILS % 63.1 % (36.0-66.0); PLATELET COUNT, AUTOMATED 244 10^3/uL (150-450); RED BLOOD COUNT 4.11 10^6/uL (4.00-5.40); WHITE BLOOD COUNT 5.6 10^3/uL (4.0-10.0)
[2024-06-11 14:59] LABS: LIPASE 32 U/L (12-53)
[2024-06-11 15:01] LABS: ALKALINE PHOSPHATASE 78 U/L (46-116); ALT/SGPT 23 U/L (7.0-40); AST/SGOT 14 U/L (<34); BILIRUBIN,DIRECT 0.2 MG/DL (<0.4); BILIRUBIN,TOTAL 0.7 MG/DL (0.3-1.2); BLOOD UREA NITROGEN 12 MG/DL (9-23); CALCIUM LEVEL 9.3 MG/DL (8.5-10.1); CARBON DIOXIDE LEVEL 30 MMOL/L (20-31); CHLORIDE LEVEL 107 MMOL/L (98-107); CK-MB VALUE MASS < 1.0 NG/ML (<3.6); GLOMERULAR FILTRATION RATE > 60.0 (>51); GLUCOSE, FASTING 86 MG/DL (60-100); POTASSIUM SERUM 4.2 MMOL/L (3.5-5.1); SODIUM LEVEL 139 MMOL/L (136-145); TOTAL PROTEIN 7.3 G/DL (5.7-8.2)
[2024-06-11 15:15] LABS: CPK CREATINE PHOSPHOKINASE 86 U/L (34-145); MB/CK RELATIVE INDEX 1.16 (< OR =4)
[2024-06-11] MEDS ORDERED: ISOVUE-370 76% 100ML VIAL As Ordered ONE (17:22)
[2024-06-11] MEDS: PANTOPRAZOLE 40MG VIAL IV ONE (17:24)
[2024-06-11] MEDS ORDERED: SUCR1ORA PO (18:27)
[2024-06-11] MEDS ORDERED: PANT40TA29 PO (18:27)
[2024-06-11] MEDS: KETOROLAC 30 MG/ML 1ML VIAL IV ONE (18:35)
[2024-06-11 18:41] VITALS: BP 168/84; TEMP 97.9; O2SAT 100
== END 2024-06-11 18:50 | disposition home or self-care (01) ==
LOC: M ED 12:54
DX: K29.70 Gastritis, unspecified, without bleeding (principal); K57.30 Diverticulosis of large intestine without perforation or abscess without bleeding; K76.0 Fatty (change of) liver, not elsewhere classified; D25.9 Leiomyoma of uterus, unspecified; Z87.19 Personal history of other diseases of the digestive system; K21.9 Gastro-esophageal reflux disease without esophagitis; E66.9 Obesity, unspecified
CPT/HCPCS: 74177; 80048; 80076; 81001; 82550; 82553; 83690; 84484; 85025; 93005; 96374; 96375; 99284; J1885; J2470; Q9967

== ENCOUNTER → 2024-06-12 | Outpatient (REF) | payer OTHER ==
[~2024-06-12] MED LIST changes: +PANT40TA29 PO; +SUCR1ORA PO
== END ==
LOC: M SFHCADAM 16:20
PROVIDERS: ATTEND Physician Assistant
DX: K29.00 Acute gastritis without bleeding (principal)

== ENCOUNTER → 2024-06-14 | Outpatient (CLI) | payer OTHER ==
[~2024-06-14] MED LIST changes: +methylPREDNISolone SUSP 40MG/ML 1ML VIAL (DEPO MEDROL) As Ordered ONE
== END ==
LOC: M RAD 12:39
PROVIDERS: ATTEND Orthopaedic Surgery
DX: M70.62 Trochanteric bursitis, left hip (principal); M70.61 Trochanteric bursitis, right hip
CPT/HCPCS: 20611; J0665; J1010

== ENCOUNTER → 2024-09-06 | Outpatient (REF) ==
[~2024-09-06] MED LIST changes: -methylPREDNISolone SUSP 40MG/ML 1ML VIAL (DEPO MEDROL) As Ordered ONE
[2024-09-10 11:07] LABS: QuantiFERON-TB Gold Plus NEGATIVE (NEGATIVE)
== END ==
LOC: M LAB 09:41
PROVIDERS: ATTEND Family Medicine
DX: Z01.89 Encounter for other specified special examinations (principal)

== ENCOUNTER → 2024-09-11 | Outpatient (REF) | LOC: M LAB 15:03 | PROVIDERS: ATTEND Family Medicine | DX: Z02.1 Encounter for pre-employment examination (principal) ==

== ENCOUNTER → 2024-10-17 | Outpatient (CLI) | payer OTHER | LOC: M RAD 15:31 | PROVIDERS: ATTEND Physician Assistant | DX: M47.812 Spondylosis without myelopathy or radiculopathy, cervical region (principal); M99.71 Connective tissue and disc stenosis of intervertebral foramina of cervical region; M46.92 Unspecified inflammatory spondylopathy, cervical region; M54.2 Cervicalgia ==

== ENCOUNTER 2024-10-27 11:55 | Emergency (ER) | payer OTHER ==
[~2024-10-27] VITALS: Ht 154.9 cm; Wt 75.0 kg
[2024-10-27 11:58] VITALS: TEMP 97
[2024-10-27] MEDS ORDERED: CALC500C16 PO (12:04)
[2024-10-27] MEDS ORDERED: LOSA50TA28 (12:04)
[2024-10-27] MEDS ORDERED: OMEG100011 PO (12:04)
[2024-10-27] MEDS ORDERED: NOXI1TAB PO (12:05)
[2024-10-27 13:00] LABS: BASO % 0.3 % (0.0-1.0); EOS % 0.5 % (0.0-3.0); HEMATOCRIT 36.9 % (36.0-47.0); HEMOGLOBIN 11.9 g/dl (12.0-15.5); LYMPH # 1.3 10^3/uL (1.5-5.0); LYMPH % 22.6 % (24.0-44.0); MEAN CORPUSCULAR HGB CONC 32.2 g/dl (32.0-36.5); MONO # 0.3 10^3/uL (0.0-0.8); MONO % 5.4 % (2.0-8.0); NEUTROPHILS # 4.1 10^3/uL (1.5-8.5); PLATELET COUNT, AUTOMATED 247 10^3/uL (150-450); WHITE BLOOD COUNT 5.7 10^3/uL (4.0-10.0)
[2024-10-27] MEDS: ONDANSETRON 4MG 2ML VIAL IV ONE (13:05)
[2024-10-27 13:32] LABS: BILIRUBIN,DIRECT 0.2 MG/DL (<0.4); BILIRUBIN,TOTAL 0.8 MG/DL (0.3-1.2); TOTAL PROTEIN 7.1 G/DL (5.7-8.2)
[2024-10-27 16:30] VITALS: BP 130/75
[2024-10-27 16:48] VITALS: O2SAT 95
== END 2024-10-27 18:00 | disposition left against medical advice (07) ==
LOC: M ED 11:55
DX: U07.1 COVID-19 (principal); R42 Dizziness and giddiness; Z53.9 Procedure and treatment not carried out, unspecified reason; I10 Essential (primary) hypertension
CPT/HCPCS: 80047; 80076; 83690; 85025; 87486; 87581; 87633; 87798; 93005; 96374; 99284; J2405

== ENCOUNTER → 2024-11-08 | Outpatient (CLI) | payer OTHER ==
[~2024-11-08] MED LIST changes: +CALC500C16 PO; +LOSA50TA28; +NOXI1TAB PO; +OMEG100011 PO
== END ==
LOC: M PLAIMG 15:35
PROVIDERS: ATTEND Physician Assistant
DX: M54.12 Radiculopathy, cervical region (principal); M50.322 Other cervical disc degeneration at C5-C6 level

== ENCOUNTER → 2025-01-01 | Outpatient (CLI) | payer OTHER | LOC: M SLEEP HO 11:43 | PROVIDERS: ATTEND Physician Assistant | DX: G47.33 Obstructive sleep apnea (adult) (pediatric) (principal) ==

== ENCOUNTER → 2025-05-15 | Outpatient (REF) | payer OTHER ==
[2025-05-15 18:00] LABS: BASO # 0.0 10^3/uL (0.0-0.2); BASO % 0.6 % (0.0-1.0); EOS # 0.1 10^3/uL (0.0-0.5); EOS % 1.4 % (0.0-3.0); LYMPH # 2.0 10^3/uL (1.5-5.0); LYMPH % 31.3 % (24.0-44.0); MONO # 0.4 10^3/uL (0.0-0.8); MONO % 6.8 % (2.0-8.0); NEUTROPHILS # 3.8 10^3/uL (1.5-8.5); NEUTROPHILS % 59.7 % (36.0-66.0); PLATELET COUNT, AUTOMATED 252 10^3/uL (150-450)
[2025-05-15 18:13] LABS: ALT/SGPT 31 U/L (7.0-40); AST/SGOT 24 U/L (<34); CALCIUM LEVEL 9.3 MG/DL (8.5-10.1); CARBON DIOXIDE LEVEL 26 MMOL/L (20-31); CHLORIDE LEVEL 106 MMOL/L (98-107); CHOLESTEROL LEVEL 259 MG/DL (<200); CHOLESTEROL RISK RATIO 3.63 (<5); CREATININE FOR GFR 0.66 MG/DL (0.55-1.30); GLOMERULAR FILTRATION RATE > 90.0 (>51); LDL CHOLESTEROL 148.1 MG/DL (<100); NON-HDL-C 187.7 MG/DL; POTASSIUM SERUM 4.2 MMOL/L (3.5-5.1); SODIUM LEVEL 142 MMOL/L (136-145); TRIGLYCERIDES LEVEL 198 MG/DL (<150)
[2025-05-15 18:17] LABS: FREE T4 1.20 NG/DL (0.89-1.76); TOTAL 25(OH) VITAMIN D 32.9 NG/ML (20.0-100.0)
[2025-05-15 18:53] LABS: ESTIMATED AVERAGE GLUCOSE 108.0 MG/DL (60-110)
== END ==
LOC: M SFHCADAM 12:08
PROVIDERS: ATTEND Physician Assistant
DX: E55.9 Vitamin D deficiency, unspecified (principal); E78.5 Hyperlipidemia, unspecified; Z86.2 Personal history of diseases of the blood and blood-forming organs and certain disorders involving the immune mechanism; I10 Essential (primary) hypertension

== ENCOUNTER → 2025-06-02 | Outpatient (CLI) | payer OTHER | LOC: M WHC 13:54 | PROVIDERS: ATTEND Physician Assistant | DX: Z12.31 Encounter for screening mammogram for malignant neoplasm of breast (principal); R92.333 Mammographic heterogeneous density, bilateral breasts ==